=== PATIENT | female | born 1975 | race Caucasian/White ===

== ENCOUNTER 2019-03-24 16:57 | Emergency (ER) | payer MEDICARE, MEDICAID ==
[~2019-03-24] VITALS: Ht 167.6 cm; Wt 83.1 kg
[2019-03-24 17:14] VITALS: TEMP 99.3
[2019-03-24 18:56] VITALS: BP 150/99
[2019-03-24] MEDS ORDERED: TOPROL XL 50MG50 MG PO (19:02)
[2019-03-24] MEDS ORDERED: BACTRIM DS 8001 TAB PO (19:02)
[2019-03-24 19:27] VITALS: PULSE 80
== END 2019-03-24 19:28 | disposition home or self-care (01) ==
LOC: COL.ER 16:57
DX: S62.625A Displaced fracture of middle phalanx of left ring finger, initial encounter for closed fracture (principal); L02.412 Cutaneous abscess of left axilla; I10 Essential (primary) hypertension; F41.9 Anxiety disorder, unspecified; F32.9 Major depressive disorder, single episode, unspecified; Z87.891 Personal history of nicotine dependence; X58.XXXA Exposure to other specified factors, initial encounter
CPT/HCPCS: J2550; J3010

== ENCOUNTER 2019-04-23 22:06 | Emergency (ER) | payer MEDICARE, MEDICAID ==
[~2019-04-23] VITALS: Ht 167.6 cm; Wt 90.0 kg
[~2019-04-23 22:06] MED LIST: BACTRIM DS 8001 TAB PO; TOPROL XL 50MG50 MG PO
[2019-04-23 22:12] VITALS: TEMP 98.3
[2019-04-23] MEDS ORDERED: AMOXICILLIN 8751 TAB PO (22:47)
[2019-04-23] MEDS ORDERED: TOPROL XL 50MG50 MG PO (22:47)
[2019-04-23 23:40] VITALS: BP 142/86; PULSE 67
== END 2019-04-23 23:40 | disposition home or self-care (01) ==
LOC: COL.ER 22:06
DX: K08.89 Other specified disorders of teeth and supporting structures (principal); F17.210 Nicotine dependence, cigarettes, uncomplicated

== ENCOUNTER → 2019-04-27 | Outpatient (CLI) | payer MEDICARE, MEDICAID ==
[~2019-04-27] MED LIST changes: +AMOXICILLIN 8751 TAB PO
[2019-04-27 19:12] LABS: CALCIUM 9.1 mg/dL (8.4-10.2); CREATININE, serum 0.59 (0.52-1.25); POTASSIUM 4.1 mmol/L (3.4-5.0)
== END ==
LOC: ZCOL.LAB 17:47
PROVIDERS: Family Medicine
DX: I10 Essential (primary) hypertension (principal)

== ENCOUNTER → 2019-04-29 | Outpatient (CLI) | payer MEDICARE, MEDICAID ==
[~2019-04-29] MED LIST changes: +PRINIVIL20 MG PO
[2019-04-29 15:45] LABS: COLLECTION METHOD CLEAN CATCH
[2019-04-29 15:57] LABS: BASO % 0.2 % (0.0-2.0); EOS # 0.1 (0.0-0.7); EOS % 0.8 % (0-4.0); GRAN # 6.5 (1.4-6.5); GRAN % 69.6 % (42.2-75.2); HEMATOCRIT 45.4 % (37.0-47.0); LYMPH # 2.2 (1.2-3.4); LYMPH % 23.6 % (20.0-51.0); MEAN CELL VOLUME 93 fl (80.0-100.0); MEAN CORPUSCULAR HEMOGLOBIN 31 pg (27.0-31.0); MEAN CORPUSCULAR HGB CONC 33 g/dl (33.0-37.0); MEAN PLATELET VOLUME 12.4 fl (7.4-10.4); MONO # 0.5 (0.1-0.6); MONO % 5.6 % (1.7-9.3); PLATELET COUNT 191 K/mm3 (130-400); RED BLOOD COUNT 4.86 M/mm3 (4.10-5.30); REDCELL DISTRIBUTION WIDTH-CV 13.3 % (11.5-14.5)
[2019-04-29 16:01] LABS: MUCOUS Present /lpf; PH 5 (5-8); URINE APPEARANCE Clear; URINE BACTERIA Rare /hpf; URINE BILIRUBIN Negative (NEGATIVE); URINE BLOOD Negative (NEGATIVE); URINE COLOR Yellow; URINE GLUCOSE Negative (NEGATIVE); URINE KETONE Negative (NEGATIVE); URINE LEUKOCYTE ESTERASE Negative (NEGATIVE); URINE NITRATE Negative (NEGATIVE); URINE PROTEIN(semi-quant) Negative (NEGATIVE); URINE RBC 0-2 /hpf; URINE UROBILINOGEN Negative (NEGATIVE); URINE WBC 0-2 /hpf
[2019-04-29 16:29] LABS: ALANINE AMINOTRANSFERASE 21 U/L (9-52); ALKALINE PHOSPHATASE 52 U/L (50-136); ANION GAP 8 mmol/L (7-16); AST,SGOT 21 U/L (15-37); BILIRUBIN,TOTAL 0.6 mg/dL (0.0-1.0); BLOOD UREA NITROGEN 13 mg/dL (7-17); CALCIUM 8.9 mg/dL (8.4-10.2); CARBON DIOXIDE 27 mmol/L (22-30); CHLORIDE 107 mmol/L (98-107); CREATININE, serum 0.55 (0.52-1.25); GLUCOSE 89 mg/dL (74-106); POTASSIUM 4.2 mmol/L (3.4-5.0); SODIUM 142 mmol/L (137-145)
[2019-04-29 16:30] LABS: C-REACTIVE PROTEIN < 0.5 mg/dL (0.0-0.9)
[2019-04-29 16:53] LABS: ERYTHROCYTE SEDIMENTATION RATE 1 mm/hr (0-20)
== END ==
LOC: ZCOL.LAB 15:36
PROVIDERS: Family Medicine
DX: R30.0 Dysuria (principal); Z87.898 Personal history of other specified conditions

== ENCOUNTER 2019-04-30 23:53 | Emergency (ER) | payer MEDICARE, MEDICAID ==
[~2019-04-30] VITALS: Ht 167.6 cm; Wt 88.2 kg
[~2019-04-30 23:53] MED LIST changes: -PRINIVIL20 MG PO
[2019-04-30 23:59] VITALS: BP 183/94; TEMP 97.3
[2019-05-01] MEDS ORDERED: PRINIVIL20 MG PO (01:15)
[2019-05-01 01:20] VITALS: PULSE 76
== END 2019-05-01 01:20 | disposition home or self-care (01) ==
LOC: COL.ER 23:53
DX: K05.6 Periodontal disease, unspecified (principal); K08.89 Other specified disorders of teeth and supporting structures

== ENCOUNTER 2019-05-15 08:48 | Emergency (ER) | payer MEDICARE, MEDICAID ==
[~2019-05-15] VITALS: Ht 167.6 cm; Wt 90.0 kg
[~2019-05-15 08:48] MED LIST changes: +PRINIVIL20 MG PO
[2019-05-15 08:49] VITALS: TEMP 97.8
[2019-05-15] MEDS ORDERED: AMOXICILLIN 50500 MG PO (08:54)
[2019-05-15] MEDS ORDERED: NORCO 325 MG-51 TAB PO (08:54)
[2019-05-15 09:29] LABS: BASO % 0.3 % (0.0-2.0); EOS # 0.2 (0.0-0.7); EOS % 1.7 % (0-4.0); GRAN # 5.6 (1.4-6.5); GRAN % 62.2 % (42.2-75.2); HEMATOCRIT 43.9 % (37.0-47.0); HEMOGLOBIN 14.5 g/dl (12.5-16.0); LYMPH # 2.6 (1.2-3.4); LYMPH % 28.9 % (20.0-51.0); MEAN CELL VOLUME 92 fl (80.0-100.0); MEAN CORPUSCULAR HEMOGLOBIN 30 pg (27.0-31.0); MEAN CORPUSCULAR HGB CONC 33 g/dl (33.0-37.0); MEAN PLATELET VOLUME 12.6 fl (7.4-10.4); MONO # 0.6 (0.1-0.6); MONO % 6.7 % (1.7-9.3); PLATELET COUNT 204 K/mm3 (130-400); RED BLOOD COUNT 4.77 M/mm3 (4.10-5.30); REDCELL DISTRIBUTION WIDTH-CV 12.7 % (11.5-14.5)
[2019-05-15 10:02] LABS: ALBUMIN 4.1 gm/dL (3.5-5.0); BILIRUBIN,TOTAL 0.6 mg/dL (0.0-1.0); C-REACTIVE PROTEIN 0.8 mg/dL (0.0-0.9); CALCIUM 9.1 mg/dL (8.4-10.2); CREATININE, serum 0.55 (0.52-1.25); POTASSIUM 4.1 mmol/L (3.4-5.0); TOTAL PROTEIN 7.5 gm/dL (6.4-8.2)
[2019-05-15 10:22] LABS: COLLECTION METHOD CLEAN CATCH
[2019-05-15 10:44] LABS: MUCOUS Present /lpf; PH 6 (5-8); SQUAMOUS EPITHELIAL None Seen /hpf; URINE APPEARANCE Clear; URINE BACTERIA None Seen /hpf; URINE BILIRUBIN Negative (NEGATIVE); URINE BLOOD Negative (NEGATIVE); URINE COLOR Yellow; URINE GLUCOSE Negative (NEGATIVE); URINE KETONE Negative (NEGATIVE); URINE LEUKOCYTE ESTERASE Negative (NEGATIVE); URINE NITRATE Negative (NEGATIVE); URINE PROTEIN(semi-quant) Negative (NEGATIVE); URINE RBC 0-2 /hpf; URINE UROBILINOGEN Negative (NEGATIVE)
[2019-05-15 11:20] VITALS: BP 127/89; PULSE 79
== END 2019-05-15 11:24 | disposition left against medical advice (07) ==
LOC: COL.ER 08:48
PROVIDERS: Physician Assistant
DX: M54.5 Low back pain (principal); G89.29 Other chronic pain; M79.7 Fibromyalgia; I10 Essential (primary) hypertension; F17.210 Nicotine dependence, cigarettes, uncomplicated; F43.10 Post-traumatic stress disorder, unspecified; Z98.51 Tubal ligation status; Z88.6 Allergy status to analgesic agent
CPT/HCPCS: J1100; J1630; J1885; J2060; J2405; J3010; J7030

== ENCOUNTER 2019-05-23 13:08 | Emergency (ER) | payer MEDICARE, MEDICAID ==
[~2019-05-23] VITALS: Ht 167.6 cm; Wt 90.0 kg
[~2019-05-23 13:08] MED LIST changes: +AMOXICILLIN 50500 MG PO; +NORCO 325 MG-51 TAB PO
[2019-05-23 13:17] VITALS: TEMP 98.2
[2019-05-23 13:59] LABS: COLLECTION METHOD CLEAN CATCH
[2019-05-23 14:06] LABS: BASO % 0.3 % (0.0-2.0); EOS # 0.1 (0.0-0.7); GRAN # 5.8 (1.4-6.5); GRAN % 65.7 % (42.2-75.2); HEMATOCRIT 43.9 % (37.0-47.0); HEMOGLOBIN 14.7 g/dl (12.5-16.0); LYMPH # 2.5 (1.2-3.4); LYMPH % 27.7 % (20.0-51.0); MEAN CELL VOLUME 92 fl (80.0-100.0); MEAN CORPUSCULAR HEMOGLOBIN 31 pg (27.0-31.0); MEAN CORPUSCULAR HGB CONC 34 g/dl (33.0-37.0); MEAN PLATELET VOLUME 12.3 fl (7.4-10.4); MONO # 0.4 (0.1-0.6); MONO % 4.8 % (1.7-9.3); PLATELET COUNT 195 K/mm3 (130-400); REDCELL DISTRIBUTION WIDTH-CV 12.8 % (11.5-14.5)
[2019-05-23 14:07] LABS: MUCOUS Present /lpf; PH 5 (5-8); SQUAMOUS EPITHELIAL 0-2 /hpf; URINE APPEARANCE Clear; URINE BACTERIA None Seen /hpf; URINE BILIRUBIN Negative (NEGATIVE); URINE BLOOD Negative (NEGATIVE); URINE COLOR Yellow; URINE GLUCOSE Negative (NEGATIVE); URINE KETONE Negative (NEGATIVE); URINE LEUKOCYTE ESTERASE Negative (NEGATIVE); URINE NITRATE Negative (NEGATIVE); URINE PROTEIN(semi-quant) Negative (NEGATIVE); URINE RBC 0-2 /hpf; URINE UROBILINOGEN Negative (NEGATIVE)
[2019-05-23 14:18] LABS: ACETAMINOPHEN < 10 ug/mL (10-30); ALANINE AMINOTRANSFERASE 9 U/L (9-52); ALBUMIN 4.2 gm/dL (3.5-5.0); ALCOHOL(ethanol),MEDICAL < 10 mg/dL; ALKALINE PHOSPHATASE 55 U/L (50-136); ANION GAP 7 mmol/L (7-16); AST,SGOT 22 U/L (15-37); BILIRUBIN,TOTAL 0.5 mg/dL (0.0-1.0); BLOOD UREA NITROGEN 16 mg/dL (7-17); CALCIUM 9.3 mg/dL (8.4-10.2); CARBON DIOXIDE 27 mmol/L (22-30); CHLORIDE 105 mmol/L (98-107); CREATININE, serum 0.59 (0.52-1.25); GLUCOSE 89 mg/dL (74-106); POTASSIUM 4.4 mmol/L (3.4-5.0); SALICYLATE < 1.0 mg/dL; SODIUM 139 mmol/L (137-145); TOTAL PROTEIN 7.4 gm/dL (6.4-8.2)
[2019-05-23 14:37] LABS: TRICYCLIC ANTIDEPRESS URINE NEGATIVE
[2019-05-23] MEDS ORDERED: EFFEXOR XR37.5 MG/CA PO (17:35)
[2019-05-23] MEDS ORDERED: ATIVAN 1MG T1 MG/TAB PO (17:35)
[2019-05-23 17:58] VITALS: BP 101/82; PULSE 81
== END 2019-05-23 18:00 | disposition home or self-care (01) ==
LOC: COL.ER 13:08
PROVIDERS: Emergency Medicine
DX: F32.9 Major depressive disorder, single episode, unspecified (principal); F41.9 Anxiety disorder, unspecified; F17.210 Nicotine dependence, cigarettes, uncomplicated; Z98.51 Tubal ligation status

== ENCOUNTER 2019-08-06 10:06 | Emergency (ER) | payer MEDICARE, MEDICAID ==
[~2019-08-06] VITALS: Ht 167.6 cm; Wt 90.9 kg
[~2019-08-06 10:06] MED LIST changes: +ATIVAN 1MG T1 MG/TAB PO; +EFFEXOR XR37.5 MG/CA PO
[2019-08-06 10:09] VITALS: TEMP 96.8
[2019-08-06 10:52] LABS: PROTHROMBIN TIME 11.4 SECONDS (9.7-12.8)
[2019-08-06] MEDS ORDERED: ZITHROMAX 250M250 MG PO (10:52)
[2019-08-06 10:55] LABS: PARTIAL THROMBOPLASTIN TIME 29.3 SECONDS (26.0-37.0)
[2019-08-06 10:56] LABS: ALANINE AMINOTRANSFERASE 22 U/L (9-52); ALBUMIN 3.6 gm/dL (3.5-5.0); ALKALINE PHOSPHATASE 55 U/L (50-136); ANION GAP 6 mmol/L (7-16); AST,SGOT 22 U/L (15-37); BILIRUBIN,TOTAL 0.2 mg/dL (0.0-1.0); BLOOD UREA NITROGEN 18 mg/dL (7-17); CALCIUM 8.2 mg/dL (8.4-10.2); CARBON DIOXIDE 27 mmol/L (22-30); CHLORIDE 108 mmol/L (98-107); CREATININE, serum 0.59 (0.52-1.25); GLUCOSE 91 mg/dL (74-106); LIPASE 75 U/L (23-300); POTASSIUM 3.7 mmol/L (3.4-5.0); SODIUM 141 mmol/L (137-145); TOTAL PROTEIN 6.5 gm/dL (6.4-8.2)
[2019-08-06 10:58] LABS: BASO % 0.2 % (0.0-2.0); EOS # 0.1 (0.0-0.7); EOS % 1.6 % (0-4.0); GRAN # 5.9 (1.4-6.5); GRAN % 72.1 % (42.2-75.2); HEMATOCRIT 44.9 % (37.0-47.0); HEMOGLOBIN 14.9 g/dl (12.5-16.0); LYMPH # 1.7 (1.2-3.4); LYMPH % 20.4 % (20.0-51.0); MEAN CELL VOLUME 93 fl (80.0-100.0); MEAN CORPUSCULAR HEMOGLOBIN 31 pg (27.0-31.0); MEAN CORPUSCULAR HGB CONC 33 g/dl (33.0-37.0); MEAN PLATELET VOLUME 12.3 fl (7.4-10.4); MONO # 0.4 (0.1-0.6); MONO % 5.3 % (1.7-9.3); PLATELET COUNT 181 K/mm3 (130-400); RED BLOOD COUNT 4.82 M/mm3 (4.10-5.30); REDCELL DISTRIBUTION WIDTH-CV 13.2 % (11.5-14.5)
[2019-08-06 11:07] LABS: TROPONIN-I < 0.012 ng/mL (0.000-0.035)
[2019-08-06 11:33] LABS: COLLECTION METHOD CLEAN CATCH
[2019-08-06 12:03] LABS: MUCOUS Present /lpf; PH 7 (5-8); URINE APPEARANCE Hazy; URINE BACTERIA None Seen /hpf; URINE BILIRUBIN Negative (NEGATIVE); URINE BLOOD 3+ (NEGATIVE); URINE COLOR Yellow; URINE GLUCOSE Negative (NEGATIVE); URINE KETONE Negative (NEGATIVE); URINE LEUKOCYTE ESTERASE Negative (NEGATIVE); URINE NITRATE Negative (NEGATIVE); URINE PROTEIN(semi-quant) 1+ (NEGATIVE); URINE RBC >50 /hpf; URINE UROBILINOGEN Negative (NEGATIVE)
[2019-08-06 13:15] VITALS: BP 106/68; PULSE 62
== END 2019-08-06 13:15 | disposition home or self-care (01) ==
LOC: COL.ER 10:06
PROVIDERS: Family Medicine
DX: R10.13 Epigastric pain (principal); I10 Essential (primary) hypertension; F17.210 Nicotine dependence, cigarettes, uncomplicated; F43.10 Post-traumatic stress disorder, unspecified; F41.9 Anxiety disorder, unspecified
CPT/HCPCS: J1200; J1630; J2270; J7030; Q9967

== ENCOUNTER 2019-09-11 04:57 | Emergency (ER) | payer MEDICARE, MEDICAID ==
[~2019-09-11] VITALS: Ht 167.6 cm; Wt 95.0 kg
[~2019-09-11 04:57] MED LIST changes: +ZITHROMAX 250M250 MG PO
[2019-09-11 05:04] VITALS: TEMP 97.6
[2019-09-11] MEDS ORDERED: AMOXICILLIN/CLA1 TA1 PO (05:21)
[2019-09-11] MEDS ORDERED: BACTRIM DS 8001 TAB PO (05:58)
[2019-09-11 06:02] VITALS: BP 129/82; PULSE 90
== END 2019-09-11 06:03 | disposition home or self-care (01) ==
LOC: COL.ER 04:57
DX: L02.215 Cutaneous abscess of perineum (principal); N76.4 Abscess of vulva; I10 Essential (primary) hypertension; F17.210 Nicotine dependence, cigarettes, uncomplicated

== ENCOUNTER 2019-11-13 22:24 | Emergency (ER) | payer MEDICARE, MEDICAID ==
[~2019-11-13] VITALS: Ht 167.6 cm; Wt 95.5 kg
[~2019-11-13 22:24] MED LIST changes: +AMOXICILLIN/CLA1 TA1 PO
[2019-11-13 22:28] VITALS: BP 141/94; TEMP 97.9
[2019-11-14 00:04] VITALS: PULSE 90
[2019-11-14] MEDS ORDERED: ROBAXIN 50500 MG/TAB PO (00:21)
== END 2019-11-14 00:04 | disposition home or self-care (01) ==
LOC: COL.ER 22:24
DX: S46.911A Strain of unspecified muscle, fascia and tendon at shoulder and upper arm level, right arm, initial encounter (principal); X58.XXXA Exposure to other specified factors, initial encounter; Y92.009 Unspecified place in unspecified non-institutional (private) residence as the place of occurrence of the external cause
CPT/HCPCS: J2270; J2360

== ENCOUNTER 2020-02-20 20:00 | Emergency (ER) | payer MEDICARE, MEDICAID ==
[~2020-02-20] VITALS: Ht 167.6 cm; Wt 104.5 kg
[~2020-02-20 20:00] MED LIST changes: +ROBAXIN 50500 MG/TAB PO
[2020-02-20 20:12] VITALS: BP 146/82; PULSE 93; TEMP 98.9
== END 2020-02-20 22:36 | disposition home or self-care (01) ==
LOC: COL.ER 20:00
DX: S09.90XA Unspecified injury of head, initial encounter (principal); F41.0 Panic disorder [episodic paroxysmal anxiety]; I10 Essential (primary) hypertension; F17.210 Nicotine dependence, cigarettes, uncomplicated; W20.8XXA Other cause of strike by thrown, projected or falling object, initial encounter; Y92.009 Unspecified place in unspecified non-institutional (private) residence as the place of occurrence of the external cause

== ENCOUNTER → 2020-07-16 | Outpatient (CLI) | payer MEDICARE, MEDICAID | LOC: ZCOL.LAB 16:04 | DX: J02.9 Acute pharyngitis, unspecified (principal); Z20.828 Contact with and (suspected) exposure to other viral communicable diseases ==

== ENCOUNTER 2021-02-05 12:37 | Emergency (ER) | payer MEDICARE, MEDICAID ==
[~2021-02-05] VITALS: Ht 165.1 cm; Wt 90.9 kg
[2021-02-05 12:47] VITALS: TEMP 97.8
[2021-02-05 13:26] LABS: BASO % 0.3 % (0.0-2.0); EOS # 0.1 (0.0-0.7); EOS % 1.1 % (0-4.0); GRAN # 6.5 (1.4-6.5); GRAN % 64.7 % (42.2-75.2); HEMATOCRIT 43.1 % (37.0-47.0); LYMPH # 2.8 (1.2-3.4); LYMPH % 27.6 % (20.0-51.0); MEAN CELL VOLUME 93 fl (80.0-100.0); MEAN CORPUSCULAR HEMOGLOBIN 30 pg (27.0-31.0); MEAN CORPUSCULAR HGB CONC 33 g/dl (33.0-37.0); MONO # 0.6 (0.1-0.6); PLATELET COUNT 261 K/mm3 (130-400); RED BLOOD COUNT 4.66 M/mm3 (4.10-5.30); REDCELL DISTRIBUTION WIDTH-CV 13.8 % (11.5-14.5)
[2021-02-05 13:37] LABS: BILIRUBIN,TOTAL 0.2 mg/dL (0.0-1.0); CALCIUM 8.9 mg/dL (8.4-10.2); CREATININE, serum 0.49 (0.52-1.25); POTASSIUM 3.7 mmol/L (3.4-5.0); TOTAL PROTEIN 7.2 gm/dL (6.4-8.2)
[2021-02-05] MEDS ORDERED: PREDNISONE20 MG PO (16:32)
[2021-02-05] MEDS ORDERED: DOXYCYCLINE HY100 MG PO (16:32)
[2021-02-05] MEDS ORDERED: VENTOLIN0.09 MG IH (16:32)
[2021-02-05 16:43] VITALS: BP 111/78; PULSE 67
== END 2021-02-05 16:43 | disposition home or self-care (01) ==
LOC: COL.ER 12:37
PROVIDERS: Emergency Medicine
DX: J44.9 Chronic obstructive pulmonary disease, unspecified (principal); J98.01 Acute bronchospasm; G89.4 Chronic pain syndrome; Z72.0 Tobacco use; Z20.822 Contact with and (suspected) exposure to COVID-19; Z85.41 Personal history of malignant neoplasm of cervix uteri; Z88.1 Allergy status to other antibiotic agents; Z88.8 Allergy status to other drugs, medicaments and biological substances
CPT/HCPCS: J2930; J3475; J7030

== ENCOUNTER 2021-08-03 01:51 | Emergency (ER) | payer MEDICARE ==
[~2021-08-03] VITALS: Ht 167.6 cm; Wt 81.8 kg
[~2021-08-03 01:51] MED LIST changes: +DOXYCYCLINE HY100 MG PO; +PREDNISONE20 MG PO; +VENTOLIN0.09 MG IH
[2021-08-03 02:03] VITALS: TEMP 98
[2021-08-03 03:41] LABS: CALCIUM 10.1 mg/dL (8.4-10.2); CREATININE, serum 0.97 mg/dL (0.57-1.11); POTASSIUM 3.8 mmol/L (3.5-4.5)
[2021-08-03 04:02] VITALS: BP 113/79; PULSE 80
== END 2021-08-03 05:31 | disposition left against medical advice (07) ==
LOC: COL.ER 01:51
PROVIDERS: Emergency Medicine
DX: T71.9XXA Asphyxiation due to unspecified cause, initial encounter (principal); J45.909 Unspecified asthma, uncomplicated; Z20.822 Contact with and (suspected) exposure to COVID-19; Z79.52 Long term (current) use of systemic steroids
CPT/HCPCS: Q9967

== ENCOUNTER → 2022-06-23 | Outpatient (CLI) | payer MEDICARE, MEDICAID | LOC: COL.PUL 07:55 | DX: R06.02 Shortness of breath (principal) ==

== ENCOUNTER → 2024-07-01 | Outpatient (CLI) | payer MEDICARE, MEDICAID ==
[~2024-07-01] MED LIST changes: +CEPHALEXIN500 M1 PO
== END ==
LOC: MC.RAD 13:55
DX: N63.14 Unspecified lump in the right breast, lower inner quadrant (principal)